=== PATIENT | male | born 1980 ===

== ENCOUNTER 2018-04-21 12:35 | Emergency (ER) | payer SELFPAY ==
--- NOTE | 2018-04-21 13:29 | UC ---
Eye Complaint HPI - HPI Summary HPI Summary: 37-year-old female presents with 2 day history of left eye redness, itching, and purulent drainage. Associated with some mild photophobia. Denies injury, fever, chills, nasal congestion, ear pain, sore throat, cough, foreign body sensation, or visual disturbances. Does not wear contacts. - History of Current Complaint Chief Complaint: UCEye Stated Complaint: EYE COMPLAINT Hx Obtained From: Patient Onset/Duration: Gradual Onset, Lasting Days - 2 Timing: Constant Severity Currently: Moderate Pain Intensity: 5 Location of Injury: Conjunctiva Associated Signs And Symptoms: Positive: Photophobia, Drainage (Purulent). Negative: Vision Impairment Bilateral, Fever, Swelling - Allergies/Home Medications Allergies/Adverse Reactions: Allergies Allergy/AdvReac Type Severity Reaction Status Date / Time No Known Allergies Allergy Verified 04/21/18 13:09 PMH/Surg Hx/FS Hx/Imm Hx Previously Healthy: Yes Cardiovascular History: Hypertension - Surgical History Surgical History: None - Family History Known Family History: Positive: Non-Contributory - Social History Occupation: Unemployed Lives: Alone Alcohol Use: Occasionally Substance Use Type: None Smoking Status (MU): Current Every Day Smoker Have You Smoked in the Last Year: Yes Household Exposure Type: Cigarettes Review of Systems All Other Systems Reviewed And Are Negative: Yes Constitutional: Negative: Fever, Chills Eyes: Positive: Drainage, Eye Redness, Photophobia. Negative: Blurred Vision, Diplopia ENT: Negative: Sore Throat, Ear Ache, Nasal Discharge, Sinus Congestion Respiratory: Negative: Cough Is Patient Immunocompromised?: No Physical Exam Triage Information Reviewed: Yes Appearance: Well-Appearing, No Pain Distress, Well-Nourished Vital Signs: Initial Vital Signs Temp 98.5 F 04/21/18 13:05 Pulse 83 04/21/18 13:05 Resp 18 04/21/18 13:05 BP 159/102 04/21/18 13:05 Pulse Ox 100 04/21/18 13:05 Eyes: Positive: Conjunctiva Inflamed - left eye, Discharge - left eye ENT: Positive: Uvula midline. Negative: Pharyngeal erythema, Nasal congestion, Nasal drainage, Tonsillar swelling, Tonsillar exudate, Sinus tenderness Neck: Positive: Supple, Nontender, No Lymphadenopathy Respiratory: Positive: Lungs clear, Normal breath sounds, No respiratory distress Cardiovascular: Positive: RRR, No Murmur Neurological: Positive: Alert Skin Exam: Normal Eye Complaint Course/Dx - Course Course Of Treatment: 37-year-old female presents with 2 day history of left eye redness, itching, and purulent drainage. Associated with some mild photophobia. Exam consistent with an acute bacterial conjunctivitis of the left eye. He is not a contact lens wearer therefore with treat with 7 day course of Polytrim ophtalmic. He is to follow up with PCP in 3 days if symptoms persist. Warning symptoms reviewed. Verbalizes understanding and agrees with POC. - Differential Dx/Diagnosis Differential Diagnosis/HQI/PQRI: Conjunctivitis, Corneal Abrasion, Foreign Body Provider Diagnoses: bacterial conjunctivitis left eye Discharge - Sign-Out/Discharge Documenting (check all that apply): Patient Departure All imaging exams completed and their final reports reviewed: No Studies - Discharge Plan Condition: Stable Disposition: HOME Prescriptions: Polymyx/Trimethoprim OPTH* [Polytrim OPHTH*] 1 drop LEFT EYE Q3H 7 Days #1 btl Patient Education Materials: Conjunctivitis (ED) Referrals: No Primary Care Phys,NOPCP [Primary Care Provider] - Additional Instructions: Use Polytrim ophthalmic 1 drop into the affected eye(s) every 3 hours while awake for 7 days. To prevent spreading the infection: 1) Do not share any towels or washcloths. Use only once then launder. 2) Change your pillow case each morning until you have completed the antibiotic drops. 3) Do not touch or rub your eye and be sure to thoroughly wash your hands if you do. Return here or follow up with your primary care provider in 3 days if symptoms persist. Seek immediate medical attention if you develop fever greater than 100.5 F, have increased pain, loss of vision, or any worsening of symptoms. - Billing Disposition and Condition Condition: STABLE Disposition: Home
== END 2018-04-21 14:04 | disposition home or self-care (01) ==
LOC: UCEAST 12:35
DX: H10.89 Other conjunctivitis (principal); B96.89 Other specified bacterial agents as the cause of diseases classified elsewhere; I10 Essential (primary) hypertension; F17.210 Nicotine dependence, cigarettes, uncomplicated
CPT/HCPCS: 99202; G0463